=== PATIENT | female | born 1980 | race African-American/Black ===

== ENCOUNTER 2016-05-11 00:16 | Emergency (ER) | payer MEDICAID ==
[~2016-05-11] VITALS: Ht 172.7 cm; Wt 84.0 kg
[2016-05-11 00:22] VITALS: BP 117/84; PULSE 99; RESP 16; TEMP 98.4; O2SAT 99
[2016-05-11 00:37] VITALS: BP 117/84; PULSE 99; RESP 16; TEMP 98.4; O2SAT 99
[2016-05-11 01:40] VITALS: BP 120/85; PULSE 89; RESP 18; O2SAT 100
[2016-05-11] MEDS ORDERED: BACT800T5 PO (01:43)
[2016-05-11] MEDS ORDERED: CEPH-460 PO (01:43)
--- NOTE | 2016-05-11 01:43 | PD ---
HPI Chief Complaint: Bite or Sting Time Seen by Provider: 01:35 Travel History International Travel<30 days: No Contact w/Intl Traveler<30days: No Traveled to known affect area: No History of Present Illness HPI The patient is a 36-year-old female who states she got bitten about 24 hours ago on the left thigh. She has erythema extending to about 20 cm in diameter now. She denies any fever. She has no known allergies. She denies any possibility of . Her last tetanus shot was 2015. [facility] Past Medical History Diminished Hearing: No Immunizations Current: Yes Tetanus Vaccination: < 5 Years Influenza Vaccination: No ?: Not LMP: 05/01/2016 Social History Alcohol Use: Yes (SOCIALLY) Tobacco Use: No Substance Use: No Allergies-Medications (Allergen,Severity, Reaction): Coded Allergies: No Known Allergies (Unverified , 05/11/16) Reported Meds & Prescriptions Reported Meds & Active Scripts Active No Active Prescriptions or Reported Medications Review of Systems Except as stated in HPI: all other systems reviewed are Neg Physical Exam Narrative GENERAL: Well-nourished, well-developed patient in slight apparent distress with her left thigh discomfort. Her vital signs are normal. SKIN: Warm and dry. There is a 20 cm diameter round erythematous area that in the center shows a bite magalys. There is both erythema and induration within this perimeter. No fangs foreign body is noted in the center bite magalys area. HEAD: Normocephalic. EYES: No scleral icterus. No injection or drainage. NECK: Supple, trachea midline. No JVD or lymphadenopathy. CARDIOVASCULAR: Regular rate and rhythm without murmurs, gallops, or rubs. RESPIRATORY: Breath sounds equal bilaterally. No accessory muscle use. GASTROINTESTINAL: Abdomen soft, non-tender, nondistended. MUSCULOSKELETAL: No cyanosis, or edema. BACK: Nontender without obvious deformity. No CVA tenderness. Data Data Last Documented VS Vital Signs Date Time Temp Pulse Resp B/P Pulse Ox O2 Delivery O2 Flow Rate FiO2 05/11/16 00:42 99 16 05/11/16 00:37 98.4 117/84 99 MDM Medical Decision Making Medical Screen Exam Complete: Yes Emergency Medical Condition: Yes Medical Record Reviewed: Yes Differential Diagnosis Allergic reaction, cellulitis, toxic reaction to sting/bite Narrative Course The patient appears to have either a toxic reaction with possible cellulitis to the sting/bite. Plan: The patient is to take Benadryl 3 times daily and is given prescriptions for Keflex and Septra DS. She should return to emergency department if worse. She is given the first doses tonight. Diagnosis Primary Impression: Infected insect bite or sting Additional Impression: Venomous bite/sting NEC Additional Instructions: The Keflex is taken 3 times daily and the Bactrim is taken twice daily. It take several days for these antibiotics to work. Also take Benadryl 25 mg 3 times daily. If worse, return to emergency department. Med/Other Pt SpecificInfo: Prescription(s) given Scripts Sulfamethoxazole-Trimethoprim (Bactrim DS)800-160 Mg Tab1 Tab PO BID #20 TAB Ref 0 Prov:Tiago Bell MD 05/11/16 Cephalexin (Keflex)500 Mg Sxw103 Mg PO Q8H #30 CAP Ref 0 Prov:Tiago Bell MD 05/11/16 Disposition: 01 DISCHARGE HOME Condition: Stable Tiago Bell MD May 11, 2016 01:43
[2016-05-11] MEDS ORDERED: SULFAMETHOXAZOLE-TRIMETHOPRIM DS 800-160 MG TAB PO ONE (01:45)
[2016-05-11] MEDS ORDERED: CEPHALEXIN MONOHYDRATE 500 MG CAP PO ONE (01:45)
== END 2016-05-11 02:16 | disposition home or self-care (01) ==
LOC: PHED 00:16
DX: L08.9 Local infection of the skin and subcutaneous tissue, unspecified (principal); T63.481A Toxic effect of venom of other arthropod, accidental (unintentional), initial encounter
CPT/HCPCS: 99282